=== PATIENT | female | born 2000 | race Caucasian/White ===

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

== ENCOUNTER 2019-10-21 10:58 | Emergency (ER) | payer MEDICAID, OTHER ==
[2019-10-21] MEDS ORDERED: ONDANSETRON HCL INJ/PF 4 MG/2 ML SDV IV ONE (12:06)
[2019-10-21] MEDS ORDERED: NORMAL SALINE 1000 ML 1,000 ML IV ONE (12:06)
--- NOTE | 2019-10-21 12:07 | ER Document Report ---
ED Medical Screen (RME) - General Chief Complaint: Vomiting Stated Complaint: VOMITING Time Seen by Provider: 10/21/19 12:03 Primary Care Provider: YNES BANEGAS PA [Primary Care Provider] - Follow up as needed Notes: HPI: 19-year-old female who is a primigravida approximately 12 weeks presenting for evaluation of uncontrollable vomiting for 2 days. Denies vaginal bleeding or discharge. Denies pelvic or abdominal pain. She is concerned about dehydration. States that she had gone to [facility] initially 2 days ago and they prescribed her Unisom and vitamin B6 which has not helped. Complains of mild frontal headache no fever I have greeted and performed a rapid initial assessment of this patient. A comprehensive ED assessment and evaluation of the patient, analysis of test results and completion of the medical decision making process will be conducted by additional ED providers PHYSICAL EXAMINATION: GENERAL: Well-appearing, well-nourished and in mild acute distress. HEAD: Atraumatic, normocephalic. EYES: sclera anicteric, conjunctiva are normal. ENT: Slightly dry mucous membranes. NECK: Normal range of motion LUNGS: Normal work of breathing HEART: Capillary refill less than 3 seconds ABD: limited by positioning for exam in triage. EXTREMITIES: no pitting or edema. No cyanosis. NEUROLOGICAL: No focal neurological deficits. Moves all extremities spontaneously and on command. PSYCH: Normal mood, normal affect. SKIN: Warm, Dry, normal turgor, no rashes or lesions noted. TRAVEL OUTSIDE OF THE [place] IN LAST 30 DAYS: No - Related Data Allergies/Adverse Reactions: rizatriptan [From Maxalt] Allergy (Verified 10/21/19 11:58) Past Medical History - Social History Chew tobacco use (# tins/day): No Frequency of alcohol use: None Drug Abuse: None Physical Exam - Vital signs Vitals: Temp Pulse Resp BP Pulse Ox 98.1 F 70 18 101/49 L 98 10/21/19 11:49 10/21/19 11:49 10/21/19 11:49 10/21/19 11:49 10/21/19 11:49 Course - Vital Signs Vital signs: Temp Pulse Resp BP Pulse Ox 98.1 F 70 18 101/49 L 98 10/21/19 11:49 10/21/19 11:49 10/21/19 11:49 10/21/19 11:49 10/21/19 11:49 Doctor's Discharge - Discharge Referrals: YNES BANEGAS PA [Primary Care Provider] - Follow up as needed
[2019-10-21 12:39] LABS: APPEARANCE,URINE SLIGHTLY-CLOUDY; BILIRUBIN,URINE NEGATIVE (NEGATIVE); COLOR,URINE YELLOW; GLUCOSE, URINE NEGATIVE (NEGATIVE); KETONES,URINE 80 mg/dL (NEGATIVE); LEUKOCYTE ESTERASE,URINE NEGATIVE (NEGATIVE); NITRITE,URINE NEGATIVE (NEGATIVE); PROTEIN,URINE NEGATIVE (NEGATIVE); URINE SPECIFIC GRAVITY 1.019; UROBILINOGEN,URINE NEGATIVE mg/dL (<2.0)
[2019-10-21] MEDS ORDERED: ACETAMINOPHEN 325 MG TABLET PO ONE (14:14)
[2019-10-21] MEDS ORDERED: DIPHENHYDRAMINE HCL 50 MG/ML VIAL IV ONE (14:14)
[2019-10-21] MEDS ORDERED: METOCLOPRAMIDE HCL INJ/PF 10 MG/2 ML SDV IV ONE (14:14)
--- NOTE | 2019-10-21 14:39 | ER Document Report ---
HPI - HPI Time Seen by Provider: 10/21/19 12:03 Pain Level: Denies Notes: Patient is a 19-year-old female G1, P0 approximate 12 weeks who presents complaining of having nausea and vomiting for the past couple days. She was given Unisom and vitamin B6 by [facility] a couple days ago, but has not been helping. She is urinating normally and having normal bowel movements. She is not having any pain or vaginal bleeding/odor/discharge. No other concerns or complaints at this time. [place] [employer] [place] Pt does have a mild BLAIR, but has improved and is not the worst of her life. It was not at maximal intensity from initial onset. Denies any fever, neck pain, URI, sore throat, chest pain, palpitations, syncope, cough, shortness of breath, wheeze, dyspnea, abdominal pain, diarrhea, urinary retention, dysuria, hematuria, or rash. - ROS Systems Reviewed and Negative: Yes All other systems reviewed and negative - CONSTITUTIONAL Constitutional: DENIES: Fever, Chills - REPRODUCTIVE LMP: [id number] Reproductive: REPORTS: : Past Medical History - Social History Smoking Status: Former Smoker Chew tobacco use (# tins/day): No Frequency of alcohol use: None Drug Abuse: None Family History: Reviewed & Not Pertinent Patient has suicidal ideation: No Patient has homicidal ideation: No Vertical Provider Document - CONSTITUTIONAL Agree With Documented VS: Yes Notes: PHYSICAL EXAMINATION: GENERAL: Well-appearing, well-nourished and in no acute distress. HEAD: Atraumatic, normocephalic. EYES: Pupils equal round and reactive to light, extraocular movements intact, sclera anicteric, conjunctiva are normal. ENT: Nares patent and without discharge. oropharynx clear without exudates. No tonsilar hypertrophy or erythema. Moist mucous membranes. No sinus tenderness. NECK: Normal range of motion, supple without lymphadenopathy LUNGS: Breath sounds clear to auscultation bilaterally and equal. No wheezes rales or rhonchi. HEART: Regular rate and rhythm without murmurs, rubs, gallops. ABDOMEN: Soft, nontender, nondistended abdomen. No guarding, no rebound. Normal bowel sounds present. No CVA tenderness bilaterally. Musculoskeletal: FROM to passive/active. Strength 5+/5. Extremities: No cyanosis, clubbing, or edema b/l. Peripheral pulses 2+. Capillary refill less than 3 seconds. NEUROLOGICAL: Normal speech, normal gait. PSYCH: Normal mood, normal affect. SKIN: Warm, Dry, normal turgor, no rashes or lesions noted. - INFECTION CONTROL TRAVEL OUTSIDE OF THE [place] IN LAST 30 DAYS: No Course - Re-evaluation Re-evalutation: 10/21/19 14:35 Patient is an afebrile, well-hydrated, 22-year-old female who presents to the ED with n/v in early . Vitals are acceptable without any significant tachycardia, tachypnea, or hypoxia. PE is otherwise unremarkable. Pt's abd is soft and nontender. Patient is nontoxic-appearing is tolerating p.o. without any difficulties. No other labs or imaging warranted at this time based on H&P. Low suspicion/risk for acute appendicitis, bowel obstruction, acute cholecystitis, acute cholangitis, perforated diverticulitis, incarcerated hernia, pancreatitis, perforated ulcer, peritonitis, sepsis, pelvic inflammatory disease, ectopic , tubo-ovarian abscess, ovarian torsion, or other systemic emergent condition at this time. Patient is aware that her condition can change from initial presentation and she needs to monitor symptoms closely and seek medical attention if any acute changes. Pt does not want any further meds at this time. She is feeling much better and is ready to go home. I will send her home with prescription for reglan. Conservative measures otherwise for symptoms. Recheck with your PCM/OBGYN in 3-5 days. Return to the ED with any worsening/concerning symptoms otherwise as reviewed in discharge. Patient is in agreement. - Vital Signs Vital signs: Temp Pulse Resp BP Pulse Ox 98.1 F 70 18 101/49 L 98 10/21/19 11:49 10/21/19 11:49 10/21/19 11:49 10/21/19 11:49 10/21/19 11:49 - Laboratory Laboratory results interpreted by me: 10/21/19 12:15 Urine Ketones 80 H Urine HCG, Qual POSITIVE H Discharge - Discharge Clinical Impression: Nausea and vomiting during Condition: Stable Disposition: HOME, SELF-CARE Additional Instructions: Maintain adequate fluid and food intake Sherman diet (B.R.A.T.) Bananas, rice, apples, toast, etc Reglan as needed tylenol if needed Monitor for any worsening symptoms Make sure you are staying hydrated enough to urinate and have normal BM's Recheck with your PCM/OBGYN in 3-5 days Return to the ED with any worsening symptoms and/or development of fever, headache, chest pain, palpitations, syncope, shortness of breath, trouble breathing, abdominal pain, n/v/d, blood in stool/urine, weakness, or other worsening symptoms that are concerning to you. Prescriptions: Metoclopramide HCl [Reglan] 10 mg PO BID PRN #10 tablet PRN Reason: Referrals: YNES BANEGAS PA [PHYSICIAN CARPENTRY SUPERVISOR] - Follow up as needed [facility] [Provider Group] - Follow up as needed
[2019-10-21 15:14] VITALS: BP 108/68
== END 2019-10-21 15:14 | disposition home or self-care (01) ==
LOC: ER 10:58
DX: O21.9 Vomiting of pregnancy, unspecified (principal); O26.892 Other specified pregnancy related conditions, second trimester; R51 Headache; Z87.891 Personal history of nicotine dependence; Z3A.16 16 weeks gestation of pregnancy
CPT/HCPCS: 99284; 81025; 81001; J2405; J7030